=== PATIENT | male | born 1945 | race Caucasian/White ===

== ENCOUNTER → 2016-08-11 | Outpatient (CLI) | payer OTHER ==
[2015-01-07 00:44] VITALS: BP 137/72
--- NOTE | 2016-08-11 12:57 | CT ---
HISTORY: Other post herpetic nervous system involvement. Study: CT brain without contrast Comparison: CT head dated January 06, 2015. Technique: Multiple axial images of the brain were obtained from the skull base to the vertex without administr ation of IV contrast. Dose reduction techniques including Automated Exposure Control (AEC) and adju stment of mA and kV were utilized. Findings: Age related cortical atrophy and small-vessel ischemic changes. Remote right basal ganglia infarct. No acute intraparenchymal hemorrhage or mass can be identified. No extra-axial fluid collections ar e seen. No alteration in the attenuation of the brain parenchyma can be identified to suggest acute or subacute ischemic change. The ventricular system is symmetric and nondilated. The extracranial structures are grossly unremarkable. IMPRESSION: 1. No acute intracranial process can be identified. 2. Chronic findings as above. Reported By:
== END ==
LOC: RAD 11:40
PROVIDERS: ATTEND Internal Medicine
DX: B02.29 Other postherpetic nervous system involvement (principal); R29.898 Other symptoms and signs involving the musculoskeletal system
CPT/HCPCS: 70450